=== PATIENT | female | born 1950 | race Caucasian/White ===

== ENCOUNTER 2021-08-04 16:21 | Outpatient (REF) | payer MEDICARE, SELFPAY ==
[2021-08-04 16:27] LABS: Appearance Urine CLOUDY; Color Urine YELLOW; Glucose Urine UA NEG (NEG); Leukocyte Esterase Urine 3+ (NEG); Nitrite Urine POS (NEG); Urine Blood 3+ (NEG); Urine Ketones NEG (NEG); Urine Protein 2+ MG/DL (NEG-TRACE)
[2021-08-04 16:37] LABS: Bacteria Urine 3+ /LPF; WBC Urine TNTC /HPF (0-4)
== END 2021-08-04 16:22 | disposition home or self-care (01) ==
LOC: HO.HVNA 16:21
PROVIDERS: Visit Provider Internal Medicine
DX: C50.912 Malignant neoplasm of unspecified site of left female breast (principal); R82.71 Bacteriuria; B96.5 Pseudomonas (aeruginosa) (mallei) (pseudomallei) as the cause of diseases classified elsewhere; B96.20 Unspecified Escherichia coli [E. coli] as the cause of diseases classified elsewhere
CPT/HCPCS: 81001; 87086; 87088; 87186

== ENCOUNTER 2021-08-15 12:17 | Outpatient (REF) | payer MEDICARE, SELFPAY ==
[2021-08-15 12:46] LABS: Appearance Urine CLOUDY; Color Urine YELLOW; Glucose Urine UA NEG (NEG); Leukocyte Esterase Urine 3+ (NEG); Nitrite Urine NEG (NEG); PH 5.5 (5.0-8.0); Specific Gravity - Urine 1.025 (1.005-1.025); Urine Blood 3+ (NEG); Urine Ketones NEG (NEG); Urine Protein 2+ MG/DL (NEG-TRACE)
[2021-08-15 13:01] LABS: Bacteria Urine 1+ /LPF; Squamous Epithelial Cell Urine TRACE /LPF; Urine Talc Crystals TRACE /LPF; WBC Urine TNTC /HPF (0-4)
== END 2021-08-15 12:18 | disposition home or self-care (01) ==
LOC: HO.LNP 12:17
PROVIDERS: Visit Provider Internal Medicine
DX: R39.15 Urgency of urination (principal); R35.0 Frequency of micturition
CPT/HCPCS: 81001; 87086; 87088; 87186